=== PATIENT | male | born 1995 | race Caucasian/White ===

== ENCOUNTER 2022-04-07 11:33 | Day surgery (SDC) | payer OTHER ==
[~2022-04-07] VITALS: Ht 185.4 cm; Wt 117.1 kg
[2022-04-07] MEDS ORDERED: Ventolin5 MG/1 ML (12:01)
[2022-04-07] MEDS ORDERED: OMEP20ER (12:02)
[2022-04-07] MEDS ORDERED: HYDHCL25 (12:02)
[2022-04-07] MEDS ORDERED: BACL10 (12:02)
[2022-04-07] MEDS ORDERED: ESCI10 (12:02)
== END 2022-04-07 14:20 | disposition home or self-care (01) ==
LOC: ORSCSDS 11:33
PROVIDERS: Internal Medicine Gastroenterology
PROC: 0DB68ZX Excision of Stomach, Via Natural or Artificial Opening Endoscopic, Diagnostic (ICD-10-PCS; principal; 2022-04-07 12:45)
DX: K21.00 Gastro-esophageal reflux disease with esophagitis, without bleeding (principal); K29.70 Gastritis, unspecified, without bleeding; K44.9 Diaphragmatic hernia without obstruction or gangrene; F41.8 Other specified anxiety disorders; E66.9 Obesity, unspecified; Z68.34 Body mass index [BMI] 34.0-34.9, adult; Z79.899 Other long term (current) drug therapy
CPT/HCPCS: 88305; 88342; J2250; J2704; J7120

== ENCOUNTER → 2024-04-16 | Outpatient (CLI) | payer OTHER ==
[~2024-04-16] MED LIST: BACL10; ESCI10; HYDHCL25; OMEP20ER; Ventolin5 MG/1 ML
== END ==
LOC: LAB SHORT 16:49 → LAB 16:49
DX: R31.9 Hematuria, unspecified (principal)
CPT/HCPCS: 87086

== ENCOUNTER → 2024-05-02 | Outpatient (CLI) | payer OTHER ==
[2024-05-02 17:21] LABS: Source, Urine Voided
[2024-05-02 19:07] LABS: Bacteria Rare /hpf; Red Blood Cells, Urine 0-2 /hpf (0-2); Squamous Epithelial Cells Not Seen /hpf (Few); White Blood Cells, Urine 0-2 /hpf (0-5)
== END ==
LOC: LAB 17:19 → LAB SHORT 17:19
PROVIDERS: Family Medicine
DX: R31.29 Other microscopic hematuria (principal)
CPT/HCPCS: 81015

== ENCOUNTER → 2024-08-09 | Outpatient (CLI) | payer OTHER | END | disposition home or self-care (01) | LOC: LAB 13:57 → LAB SHORT 13:57 | DX: N41.0 Acute prostatitis (principal) | CPT/HCPCS: 87086 ==

== ENCOUNTER 2024-11-24 11:40 | Emergency (ER) | payer OTHER ==
[~2024-11-24] VITALS: Ht 188 cm; Wt 111.1 kg
[2024-11-24 13:25] LABS: Source, Urine Clean Catch
[2024-11-24 13:31] LABS: BASOPHILS ABSOLUTE AUTO 0.04 K/mm3 (0.00-0.23); BASOPHILS PERCENT AUTO 1 % (0-2); EOSINOPHILS ABSOLUTE AUTO 0.09 K/mm3 (0.00-0.68); EOSINOPHILS PERCENT AUTO 1 % (0-6); Hematocrit 44.6 % (37.0-53.0); Hemoglobin 15.4 g/dL (13.5-17.5); IMMATURE GRAN ABSOLUTE AUTO 0.01 K/mm3 (0.00-0.10); IMMATURE GRAN PERCENT AUTO 0 % (0-1); LYMPHOCYTES ABSOLUTE AUTO 1.02 K/mm3 (0.84-5.20); LYMPHOCYTES PERCENT AUTO 13 % (21-46); MONOCYTES ABSOLUTE AUTO 0.54 K/mm3 (0.16-1.47); MONOCYTES PERCENT AUTO 7 % (4-13); Mean Corpuscular HGB Conc 34.5 g/dL (31.5-36.5); Mean Corpuscular Volume 84 fL (80-100); NEUTROPHILS ABSOLUTE AUTO 6.26 K/mm3 (1.96-9.15); NEUTROPHILS PERCENT AUTO 79 % (41-73); NRBC ABSOLUTE 0.00 K/mm3 (0.00-0.02); NRBC Auto 0.0 /100 WBC (0.0-0.2); Platelet Count 236 K/mm3 (150-400); RDW Coefficient Variation 11.6 % (11.7-14.2); RDW Standard Deviation 35.3 fL (35.1-46.3)
[2024-11-24 13:46] LABS: Bilirubin, Urine Neg (Neg); Color, Urine Yellow (P-Yellow); Glucose Qualitative, Urine Neg (Neg); Ketones, Urine Neg (Neg); Leukocyte Esterase, Urine Neg (Neg); Protein, Urine Neg (Neg); Specific Gravity, Urine 1.015 (1.003-1.022); Urobilinogen, Urine NORM (Normal)
[2024-11-24 13:58] LABS: Alanine Aminotransfer (ALT/SGP 27.0 U/L (12-78); Albumin, Blood 3.8 g/dL (3.4-5.0); Albumin/Globulin Ratio 1.1 (0.8-1.8); Anion Gap 7.0 mmol/L (3-11); Aspartate Aminotrans (AST/SGOT 13.0 U/L (12-37); Bilirubin, Total 0.5 mg/dL (0.1-1.0); Blood Urea Nitrogen 13.0 mg/dL (8-24); CO2, Blood 25.0 mmol/L (21-32); Calcium, Blood 8.9 mg/dL (8.5-10.1); Chloride, Blood 108.0 mmol/L (98-108); Creatinine, Blood 1.05 mg/dL (0.60-1.20); Globulin, Blood 3.4 g/dL (2.2-4.0); Glucose, Blood 108.0 mg/dL (70-99); Potassium, Blood 3.8 mmol/L (3.5-5.5); Sodium, Blood 136.0 mmol/L (136-145); Total Protein, Blood 7.2 g/dL (6.4-8.2)
[2024-11-24] MEDS ORDERED: Methocarbamol500 MG PO ×2 (14:14→16:11)
[2024-11-24] MEDS ORDERED: ALBU90OI INH ×2 (14:14→16:11)
[2024-11-24 14:25] LABS: Red Blood Cells, Urine 0-2 /hpf (0-2); White Blood Cells, Urine 0-2 /hpf (0-5)
[2024-11-24 14:51] VITALS: BP 134/71
== END 2024-11-24 14:52 | disposition home or self-care (01) ==
LOC: ER 11:40
PROVIDERS: Physician Assistant
DX: M54.50 Low back pain, unspecified (principal); M62.830 Muscle spasm of back; Z79.899 Other long term (current) drug therapy
CPT/HCPCS: 80053; 81001; 85025; 99284; A9270